=== PATIENT | female | born 1990 | race Caucasian/White ===

== ENCOUNTER → 2022-08-07 | Outpatient (CLI) | payer MEDICARE, SELFPAY ==
[2022-08-07 14:13] LABS: Thyroid Stim Hormone (TSH) 1.45 uIU/mL (0.358-3.74)
== END | disposition home or self-care (01) ==
PROVIDERS: Referring Provider Nurse Practitioner; Visit Provider Nurse Practitioner
DX: O99.283 Endocrine, nutritional and metabolic diseases complicating pregnancy, third trimester (principal); E03.9 Hypothyroidism, unspecified; Z36.85 Encounter for antenatal screening for Streptococcus B
CPT/HCPCS: 36415; 84443; 87081

== ENCOUNTER → 2022-09-11 | Outpatient (CLI) | payer MEDICARE, SELFPAY ==
[2022-09-11 14:04] LABS: Bacteria 0 SEEN /hpf (None Seen); Mucous, Urine 0 SEEN /hpf (<or=2+); Red Blood Cells-Urine 0 SEEN /hpf (0-5); Squamous Epithelial Cells - UA 0 SEEN /hpf (5-10); White Blood Cells 0 SEEN /hpf (0-5)
[2022-09-11 15:42] LABS: Color, Urine Yellow (Yellow); Glucose, Dipstick Normal (Normal); Ketone-Dipstick Negative (Negative); Leukocyte Esterase-Dipstick 25 /ul (Negative); Nitrite-Dipstick Negative (Negative); Occult Blood-Urine Negative /ul (Negative); Protein-Dipstick Negative (Negative); Urine Bilirubin Dipstick Negative (Negative); Urine Clarity Clear (Clear); Urine Urobilinogen Normal (Normal)
== END | disposition home or self-care (01) ==
LOC: LAB 13:59
PROVIDERS: Visit Provider Nurse Practitioner
DX: R30.0 Dysuria (principal)
CPT/HCPCS: 36415; 81001; 87086; 87088